=== PATIENT | male | born 1950 ===

== ENCOUNTER 2021-02-07 16:11 | Inpatient (IN) | payer MEDICARE ==
[~2021-02-07] VITALS: Ht 170 cm; Wt 69.5 kg
[2021-02-07] MEDS ORDERED: TAMS.4ER PO (17:18)
[2021-02-07] MEDS ORDERED: VENL25 PO (17:20)
[2021-02-07 18:14] LABS: Hemoglobin 12.1 g/dL (13.5-17.5); Mean Corpuscular HGB 27.9 pg (26.0-34.0); Mean Corpuscular HGB Conc 33.6 g/dL (31.5-36.5); Mean Corpuscular Volume 83 fL (80-100); Mean Platelet Volume 9.7 fL (9.1-12.4); NRBC ABSOLUTE 0.02 K/mm3 (0.00-0.02); Platelet Count 222 K/mm3 (150-400); Red Blood Cell Count 4.33 M/mm3 (4.30-5.90); White Blood Cell Count 48.79 K/mm3 (4.00-11.30)
[2021-02-07 18:32] LABS: International Normalized Ratio 1.35; Prothrombin Time Results 13.9 Sec (9.7-11.5)
[2021-02-07 18:38] LABS: Albumin, Blood 1.7 g/dL (3.4-5.0); Anion Gap 11 mmol/L (6-16); Blood Urea Nitrogen 109 mg/dL (8-24); Bun/Creatinine Ratio 17.2 (12.0-20.0); CO2, Blood 17 mmol/L (21-32); CPK Creatine Kinase 169 U/L (39-308); Chloride, Blood 105 mmol/L (98-108); Creatine Kinase MB 14.2 ng/mL (0.0-3.6); Creatine Kinase MB Index 8.4 (0.0-4.0); Creatinine, Blood 6.32 mg/dL (0.60-1.20); Ethanol (Alcohol), Blood, Med <3 mg/dL; Glomerular Filtration Rate 9 (60-); Glucose, Blood 60 mg/dL (70-99); Phosphorus, Blood 7.9 mg/dL (2.5-4.9); Potassium, Blood 5.6 mmol/L (3.5-5.5); Sodium, Blood 133 mmol/L (136-145); Troponin I <0.015 ng/mL (0.000-0.040)
[2021-02-07 18:40] LABS: Source, Urine Catheter
[2021-02-07 18:45] LABS: Appearance, Urine Clear (Clear); Bilirubin, Urine Neg (Neg); Blood, Urine 4+ (Neg); Color, Urine Yellow (P-Yellow); Glucose Qualitative, Urine Neg (Neg); Ketones, Urine Neg (Neg); Leukocyte Esterase, Urine 1+ (Neg); Nitrite, Urine Neg (Neg); Protein, Urine Neg (Neg); Urobilinogen, Urine NORM (Normal)
[2021-02-07 18:59] LABS: U Amphetamine Screen DETECTED; U Barbituate Screen Not Detected; U Benzodiazapine Screen Not Detected; U Buprenorphine Screen Not Detected; U Cannabinoids Screen Not Detected; U Cocaine Screen Not Detected; U Methadone Screen Not Detected; U Methamphetamine Screen DETECTED; U Opiates Screen Not Detected; U Oxycodone Screen Not Detected; U Phencyclidine Screen Not Detected; U Propoxyphene Screen Not Detected
[2021-02-07 19:02] LABS: BAND PERCENT MAN 11 % (0-8); BASOPHILS PERCENT MAN 0 % (0-2); EOSINOPHILS PERCENT MAN 0 % (0-6); LYMPHOCYTES ABSOLUTE MAN 0.48 K/mm3 (0.84-5.20); LYMPHOCYTES PERCENT MAN 1 % (21-46); MONOCYTES ABSOLUTE MAN 0.48 K/mm3 (0.16-1.47); MONOCYTES PERCENT MAN 1 % (4-13); NEUTROPHILS ABSOLUTE MAN 47.81 K/mm3 (1.96-9.15); SEG NEUTROPHILS PERCENT MAN 87 % (41-73); TOTAL CELLS COUNTED 100
[2021-02-07 19:06] LABS: Bacteria Rare /hpf; Squamous Epithelial Cells Not Seen /hpf (Few); White Blood Cells, Urine 0-2 /hpf (0-5)
--- NOTE | 2021-02-07 19:11 | NUR ---
Patient received as a direct admit via [employer] transportation, stretcher, and slide @ 1540. Alert and oriented x4. Able to give history. Admitted for SOB and pulm edema. Weakness in all extremities. on IV lasix, rocephin, trending BUN and creatinine. BSSR to be given to awake overnight counselor nurse.
[2021-02-07 19:34] LABS: Influenza A, PCR NEGATIVE (NEGATIVE); Influenza B, PCR NEGATIVE (NEGATIVE); Resp Syncytial Virus, PCR NEGATIVE (NEGATIVE); SARS-Cov-2 (COVID-19) PCR, MMC NEGATIVE (NEGATIVE)
--- NOTE | 2021-02-07 23:00 | NUR ---
2000 CIWA SCORE 8, ATIVAN HELD DUE TO LETHARGY.
--- NOTE | 2021-02-07 23:07 | NUR ---
24 HOUR URINE FOR PROTEIN STARTED AT 1999.
--- NOTE | 2021-02-08 02:33 | NUR ---
RN FROM [facility] CALLED TO INFORM THAT PT'S BC'S WERE POSITIVE FOR GRAM+ COCCI IN CHAINS IN AEROBIC BOTTLE. DR ANDRADE NOTIFED. SINCERE STILES
[2021-02-08 02:39] LABS: Hematocrit 36.8 % (37.0-53.0); Hemoglobin 12.6 g/dL (13.5-17.5); Mean Corpuscular HGB 28.1 pg (26.0-34.0); Mean Corpuscular HGB Conc 34.2 g/dL (31.5-36.5); Mean Corpuscular Volume 82 fL (80-100); Mean Platelet Volume 9.2 fL (9.1-12.4); NRBC ABSOLUTE 0.02 K/mm3 (0.00-0.02); Platelet Count 226 K/mm3 (150-400); RDW Standard Deviation 45.4 fL (35.1-46.3); Red Blood Cell Count 4.48 M/mm3 (4.30-5.90); White Blood Cell Count 46.43 K/mm3 (4.00-11.30)
--- NOTE | 2021-02-08 02:49 | NUR ---
SHIFT SUMMARY: PT LETHARGIC, UNABLE TO FOLLOW SIMPLE COMMANDS AND CONFUSED TO TIME AND PLACE. REQUIRES TOTAL ASSIST WITH ALL CARES. RIGHT ARM EDEMATOUS AND TENDER TO TOUCH, RED AND INFLAMED. PT HAS SCATTERED SCABS AND OPEN AREAS ALL OVER TRUNK AND EXTREMITIES. TURNED AND REPOSITION, 02 AT 2L FOR O2 SUPPORT. BICARB GTT INFUSING PER ORDER, MOST RECENT CIWA SCORE 8 BUT ATIVAN HELD DUE TO LETHARY AND SOFT BP'S. ST ON TELE IN THE ONE TEENS, 24 HOUR URINE IN PROGRESS FOR PROTEIN, DIURESING WELL AFTER IV BUMEX AND LASIX, 6L OUT THUS FAR. RENAL AND BLADDER US COMPLETED BUT NO REPORT YET IN [place]. DR WOOD IN TO ROUND ON PT AND ORDERS REC'D RECHECK CBG IN BEGINNING OD SHIFT WAS 100. PO MEDS HELD PT NOT DEEMED SAFE TO SWALLOW CURRENLTY. BED LOCKED AND LOW, BED ALARM ACTIVE, CALL GENE GRADY. SINCERE STILES
[2021-02-08 03:00] LABS: Alanine Aminotransfer (ALT/SGP 34 U/L (12-78); Albumin, Blood 1.7 g/dL (3.4-5.0); Albumin/Globulin Ratio 0.4 (0.8-1.8); Alk Phos 115 U/L (50-136); Anion Gap 9 mmol/L (6-16); Aspartate Aminotrans (AST/SGOT 44 U/L (12-37); Bilirubin, Total 0.6 mg/dL (0.1-1.0); Blood Urea Nitrogen 90 mg/dL (8-24); Bun/Creatinine Ratio 20.5 (12.0-20.0); CO2, Blood 22 mmol/L (21-32); Calcium, Blood 8.6 mg/dL (8.5-10.1); Chloride, Blood 110 mmol/L (98-108); Creatinine, Blood 4.39 mg/dL (0.60-1.20); Globulin, Blood 4.6 g/dL (2.2-4.0); Glomerular Filtration Rate 13 (60-); Glucose, Blood 108 mg/dL (70-99); Magnesium, Blood 1.6 mg/dL (1.6-2.4); Phosphorus, Blood 6.2 mg/dL (2.5-4.9); Potassium, Blood 4.4 mmol/L (3.5-5.5); Sodium, Blood 141 mmol/L (136-145); Total Protein, Blood 6.3 g/dL (6.4-8.2); Troponin I <0.015 ng/mL (0.000-0.040); Vancomycin, Random 11.9 ug/mL
[2021-02-08 03:20] LABS: BAND PERCENT MAN 16 % (0-8); BASOPHILS PERCENT MAN 0 % (0-2); EOSINOPHILS PERCENT MAN 0 % (0-6); LYMPHOCYTES ABSOLUTE MAN 0.46 K/mm3 (0.84-5.20); LYMPHOCYTES PERCENT MAN 1 % (21-46); METAMYELOCYTE ABSOLUTE MAN 0.46 K/mm3 (0.00-0.00); METAMYELOCYTE PERCENT MAN 1 % (0-0); MONOCYTES ABSOLUTE MAN 1.39 K/mm3 (0.16-1.47); MONOCYTES PERCENT MAN 3 % (4-13); SEG NEUTROPHILS PERCENT MAN 79 % (41-73); TOTAL CELLS COUNTED 100
--- NOTE | 2021-02-08 18:21 | NUR ---
SHIFT SUMMARY PT HAS SLEPT FOR MOST OF THE DAY, THERE WERE PERIODS WHERE THEY WERE DIFFICULT TO ROUSE. AT APPROXIMATELY 1700 THE PT DID SPEAK TO THIS RN FOR A FEW MINUTES AND THEY WERE ALERT AND ORIENTED TO TIME, PLACE, PERSON, AND SELF. PT HAS NOT MADE ANY STATEMENT TO PAIN OR DISCOMFORT, THOUGH THEY WILL GRIMACE AND MOAN WHEN REPOSITIONED. PT HAD AN EPISODE OF O2 DESATURATION DOWN TO 80%, THEY QUICKLY RECOVERED TO >90% WITH INTERVENTION. PT HAS HAD A WET NONPRODUCTIVE COUGH, ORAL SUCTIONING RETURNED A SMALL AMOUNT OF THICK SECRETIONS. ALL OTHER VITAL SIGNS STABLE, NO OTHER ACUTE CHANGES.
--- NOTE | 2021-02-09 03:38 | NUR ---
SHIFT SUMMARY: NO SIGNIFICANT CHANGES THIS SHIFT. PT AROUSABLE TO VERBAL STIMULI BUT REMAINS LETHARGIC. INTERMITTENTLY ABLE TO FOLLOW SIMPLE COMMANDS, DISORIENTED TO PLACE AND TIME. TOTAL ASSIST WITH ALL CARE. ORAL CAR GIVEN, NT SUCTIONED DUE TO AUDIBLE GURGLES BUT NO RETURN. PT ABLE TO WEAKLY COUGH WITH ENCOURAMENT. O2 SATS >95% VIA N/C. RIGHT ARM ELEVATED, REMAINS FROSSLY EDEMATOUS AND INFLAMED. ST ON TELE, AFEBRILE WITH OTHER VS STABLE. BED LOCKED AND LOW, CALL LUNA IN REACH, BICARB GTT PER ORDER. CORDERO FOR RETENTION DRAINING ADEQUATE AMOUNT LIGHT YELLOW URINE. SINCERE STILES
[2021-02-09 05:38] LABS: Hematocrit 38.2 % (37.0-53.0); Hemoglobin 12.8 g/dL (13.5-17.5); Mean Corpuscular HGB 27.8 pg (26.0-34.0); Mean Corpuscular HGB Conc 33.5 g/dL (31.5-36.5); Mean Corpuscular Volume 83 fL (80-100); Mean Platelet Volume 9.3 fL (9.1-12.4); NRBC ABSOLUTE 0.03 K/mm3 (0.00-0.02); NRBC Auto 0.1 /100 WBC (0.0-0.2); Platelet Count 253 K/mm3 (150-400); RDW Coefficient Variation 15.1 % (11.7-14.2); RDW Standard Deviation 45.2 fL (35.1-46.3); Red Blood Cell Count 4.61 M/mm3 (4.30-5.90); White Blood Cell Count 46.73 K/mm3 (4.00-11.30)
[2021-02-09 06:07] LABS: Anion Gap Unable to Calculate mmol/L (6-16); Bun/Creatinine Ratio Unable to Calculate (12.0-20.0); Glomerular Filtration Rate Unable to Calculate (60-)
[2021-02-09 06:09] LABS: Albumin, Blood 1.5 g/dL (3.4-5.0); Amylase, Blood 126 U/L (25-115); Anion Gap 5 mmol/L (6-16); Blood Urea Nitrogen 60 mg/dL (8-24); Bun/Creatinine Ratio 33.1 (12.0-20.0); CO2, Blood 30 mmol/L (21-32); Calcium, Blood 8.1 mg/dL (8.5-10.1); Chloride, Blood 120 mmol/L (98-108); Creatinine, Blood 1.81 mg/dL (0.60-1.20); Glomerular Filtration Rate 37 (60-); Glucose, Blood 189 mg/dL (70-99); Magnesium, Blood 1.8 mg/dL (1.6-2.4); Phosphorus, Blood 5.1 mg/dL (2.5-4.9); Potassium, Blood 3.1 mmol/L (3.5-5.5)
[2021-02-09 06:21] LABS: Sodium, Blood 155 mmol/L (136-145)
[2021-02-09 06:29] LABS: BAND PERCENT MAN 1 % (0-8); BASOPHILS PERCENT MAN 0 % (0-2); EOSINOPHILS PERCENT MAN 0 % (0-6); LYMPHOCYTES ABSOLUTE MAN 2.33 K/mm3 (0.84-5.20); LYMPHOCYTES PERCENT MAN 5 % (21-46); METAMYELOCYTE ABSOLUTE MAN 0.46 K/mm3 (0.00-0.00); METAMYELOCYTE PERCENT MAN 1 % (0-0); MONOCYTES PERCENT MAN 0 % (4-13); MYELOCYTE ABSOLUTE MAN 0.46 K/mm3 (0.00-0.00); MYELOCYTE PERCENT MAN 1 % (0-0); NEUTROPHILS ABSOLUTE MAN 43.45 K/mm3 (1.96-9.15); SEG NEUTROPHILS PERCENT MAN 92 % (41-73); TOTAL CELLS COUNTED 100
--- NOTE | 2021-02-09 06:34 | NUR ---
DR WOOD NOTIFIED OF ABNORMAL LABS, ORDERS REC'D. SINCERE STILES
[2021-02-09 09:09] LABS: Vancomycin, Trough 13.2 ug/mL (5.0-10.0)
[2021-02-09 15:46] LABS: Potassium, Blood 3.6 mmol/L (3.5-5.5)
--- NOTE | 2021-02-09 18:43 | NUR ---
SHIFT SUMMARY PT HAS BEEN SLEEPING OFF AND ON ALL DAY. WHEN AWAKE, PT IS A&O X2-3. PT WILL GRIMACE AND CRY OUT IN PAIN, BUT WHEN ASKED ABOUT PAIN WILL NOT REPLY. PT CONTINUES TO HAVE A WET SOUNDING COUGH WITH NO SPUTUM PRODUCTION. ALL VITAL SIGNS HAVE REMAINED STABLE.
[2021-02-09 18:53] LABS: Hematocrit 37.7 % (37.0-53.0); Hemoglobin 12.3 g/dL (13.5-17.5); Mean Corpuscular HGB Conc 32.6 g/dL (31.5-36.5); Mean Corpuscular Volume 86 fL (80-100); NRBC ABSOLUTE 0.03 K/mm3 (0.00-0.02); NRBC Auto 0.1 /100 WBC (0.0-0.2); Platelet Count 223 K/mm3 (150-400); RDW Coefficient Variation 15.3 % (11.7-14.2); RDW Standard Deviation 47.6 fL (35.1-46.3); Red Blood Cell Count 4.39 M/mm3 (4.30-5.90); White Blood Cell Count 44.56 K/mm3 (4.00-11.30)
[2021-02-09 20:07] LABS: BAND PERCENT MAN 1 % (0-8); BASOPHILS PERCENT MAN 0 % (0-2); EOSINOPHILS PERCENT MAN 0 % (0-6); LYMPHOCYTES ABSOLUTE MAN 4.45 K/mm3 (0.84-5.20); LYMPHOCYTES PERCENT MAN 10 % (21-46); METAMYELOCYTE ABSOLUTE MAN 0.89 K/mm3 (0.00-0.00); METAMYELOCYTE PERCENT MAN 2 % (0-0); MONOCYTES ABSOLUTE MAN 1.33 K/mm3 (0.16-1.47); MONOCYTES PERCENT MAN 3 % (4-13); MYELOCYTE ABSOLUTE MAN 0.89 K/mm3 (0.00-0.00); MYELOCYTE PERCENT MAN 2 % (0-0); NEUTROPHILS ABSOLUTE MAN 36.98 K/mm3 (1.96-9.15); SEG NEUTROPHILS PERCENT MAN 82 % (41-73); TOTAL CELLS COUNTED 100
--- NOTE | 2021-02-10 00:35 | NUR ---
PATIENT IS ALERT TO SELF ONLY, WAKES TO VERBAL STIMULI AND IS AGITATED WITH TOUCH, GRIMACING AND CALLING OUT. AUDITORY WHEEZING NOTED AND LUNGS ARE COARSE, DEEP SUCTIONING VIA YANKUER GIVEN X 2 WITH QUEING TO COUGH, PATIENT SEEMS TO HAVE DIFFICULTY CLEARING SECRETIONS ON HIS OWN, SECRETIONS ARE DAUGHERTY, THICK. PATIENT IS SCORING CIWA> [address] WOOD RECEIVED SODIUM LEVEL AT 2100 THIS EVENING AND NO NEW ORDERS AT THIS TIME, POTASSIUM REPLACEMENT WAS COMPLETED IV GTT, DEXTROSE 5% WATER IS RUNNING AT 150ML/HR, WITH IV ABX GTT RUNNING 12.5ML/HR.
--- NOTE | 2021-02-10 02:44 | NUR ---
PATIENT IS SOMNOLENT, VERBAL STIMULI DOESN'T SUSTAIN OVER 10 SECONDS EYE AWAKENING, TEMPERATURE 34.0 CELCIUS RECTAL, MARK HUGGER APPLIED AND RECTAL PROBE INSERTED MONITORING ON THE MAIN SCREEN.
[2021-02-10 04:00] LABS: Hematocrit 38.7 % (37.0-53.0); Hemoglobin 12.3 g/dL (13.5-17.5); Mean Corpuscular HGB 27.5 pg (26.0-34.0); Mean Corpuscular HGB Conc 31.8 g/dL (31.5-36.5); Mean Corpuscular Volume 86 fL (80-100); Mean Platelet Volume 9.6 fL (9.1-12.4); NRBC ABSOLUTE 0.03 K/mm3 (0.00-0.02); NRBC Auto 0.1 /100 WBC (0.0-0.2); Platelet Count 210 K/mm3 (150-400); RDW Coefficient Variation 15.5 % (11.7-14.2); RDW Standard Deviation 49.5 fL (35.1-46.3); Red Blood Cell Count 4.48 M/mm3 (4.30-5.90); White Blood Cell Count 31.98 K/mm3 (4.00-11.30)
[2021-02-10 04:27] LABS: Alanine Aminotransfer (ALT/SGP 24 U/L (12-78); Albumin, Blood 1.5 g/dL (3.4-5.0); Albumin/Globulin Ratio 0.3 (0.8-1.8); Alk Phos 103 U/L (50-136); Amylase, Blood 262 U/L (25-115); Anion Gap 3 mmol/L (6-16); Aspartate Aminotrans (AST/SGOT 28 U/L (12-37); Bilirubin, Direct 0.2 mg/dL (0.0-0.3); Bilirubin, Indirect 0.1 mg/dL (0.1-0.7); Bilirubin, Total 0.3 mg/dL (0.1-1.0); Blood Urea Nitrogen 43 mg/dL (8-24); CO2, Blood 32 mmol/L (21-32); Calcium, Blood 7.7 mg/dL (8.5-10.1); Chloride, Blood 119 mmol/L (98-108); Creatinine, Blood 1.05 mg/dL (0.60-1.20); Globulin, Blood 4.8 g/dL (2.2-4.0); Glomerular Filtration Rate >60 (60-); Glucose, Blood 311 mg/dL (70-99); Magnesium, Blood 1.9 mg/dL (1.6-2.4); Phosphorus, Blood 2.9 mg/dL (2.5-4.9); Potassium, Blood 4.1 mmol/L (3.5-5.5); Sodium, Blood 154 mmol/L (136-145); Total Protein, Blood 6.3 g/dL (6.4-8.2)
[2021-02-10 05:42] LABS: BAND PERCENT MAN 2 % (0-8); BASOPHILS PERCENT MAN 0 % (0-2); EOSINOPHILS PERCENT MAN 0 % (0-6); LYMPHOCYTES ABSOLUTE MAN 0.63 K/mm3 (0.84-5.20); LYMPHOCYTES PERCENT MAN 2 % (21-46); MONOCYTES ABSOLUTE MAN 0.63 K/mm3 (0.16-1.47); MONOCYTES PERCENT MAN 2 % (4-13); MYELOCYTE ABSOLUTE MAN 0.63 K/mm3 (0.00-0.00); MYELOCYTE PERCENT MAN 2 % (0-0); NEUTROPHILS ABSOLUTE MAN 30.06 K/mm3 (1.96-9.15); SEG NEUTROPHILS PERCENT MAN 92 % (41-73); TOTAL CELLS COUNTED 100
--- NOTE | 2021-02-10 14:26 | NUR ---
DRESSINGS CHANGED ON RUE AND BOTH BLE, RUE DRAINING PUS SWAB SENT TO LAB WITH ORDERS. DR. ADLER AWARE, D5W ORDERED TO KVO. PT REMAINED RESTLESS ATIVAN GIVEN X2, PT WAS ABLE TO RESPOND TO VERBAL STIMULI NODS AND MOVES HEAD OCCASIONALLY WHEN ASKED QUESTIONS, REMAINS ON 2L OF O2 VIA NC SATS ABOVE 98%, HRR TACHS UP TO 120-130'S, BP SYSTOLIC 130-140'S, TEMP 98.0, LUNGS COARSE ALL T/O SUCTIONED PRN. CIWA AT 14 AT THIS TIME. BED BATH COMPLETED. PT REMAINED IN BED REPOSITIONED Q2HRS, CALL LIGHTS IN REACH WILL MONITOR
--- NOTE | 2021-02-10 17:53 | NUR ---
SHIFT SUMMARY PATIENT AGITATED THROUGHOUT SHIFT; MEDICATED WITH 1-2 MG OF ATIVAN NEEDED. UNABLE TO TAKE PO MEDS OR FOODS/FLUIDS DUE TO CONTINUED ASPIRATION RISK AND INABILITY TO FOLLOW DIRECTIONS. PATIENT ABLE TO FOLLOW SIMPLE DIRECTIONS. SUCTIONING NEEDED FREQUENTLY THROUGHOUT SHIFT DUE TO INABILITY TO CLEAR SECRETIONS. COARSE LUNG SOUNDS IN ALL LOBES. YELLOW THICK SPUTUM. RT PERFORMED DUONEB TREATMENT WITH LITTLE TO NO POSITIVE RESULTS. PATIENT SATTING AT 98-100 ON 2L VIA NASAL CANULA. REPOSITIONED FREQUENTLY DUE TO MOVEMENT FROM AGITATION. CIWA ASSESSMENT OF 14. SYSTOLIC BP 130-1402, DIASTOLIC IN THE 70S. SINUS TACHYCARDIA FROM 100-130S. CANULA. BATH GIVEN AND BEDDING CHANGED. ATTENDS DRY; NO BM. CORDERO CATHETER IN PLACE DRAINING DARK YELLOW URINE. CALAZIME BARRIER CREAM APPLIED TO COCCYX/BUTTOCKS. PADDED DRESSING APPLIED TO COCCYX TO RED INTACT AREA. RECTAL TEMP PROBE IN PLACE; TEMP 97-98. DRESSINGS ON BLE AND RUE CHANGED. RUE EDEMA PRESENT WITH SEEPING OF PUS; CULTURE SENT TO LAB AND WRAPPED WITH ABD AND GUAZE.
--- NOTE | 2021-02-10 21:13 | NUR ---
PATIENT MOANING GROANING UNCONSOLABLE, RESTLESS WITHDRAWNING WITH EXTREMITIES, NONPURPOSEFUL MOVEMENTS, GRIMACING, CRYING OUT, TELE INFORMED HR GOING UP TO THE 180'S SVT NONSUSTAINING ATTEMPTED TO GET EKG IN CHART.
--- NOTE | 2021-02-10 22:45 | NUR ---
RECTAL PROBE AT 30.0 C APPLIED MARK KHOURY NOW AT 33.6
--- NOTE | 2021-02-10 22:55 | NUR ---
PATIETN IS SLOWLY WARMING WITH MARK HUGGER MORE CALM LESS RESTLESS SCORE OF CIWA 18, THRASHING, SWINGING ARMS, PULLING AT LINES MAKING PROTECTIVE AND NONPURPOSEFUL MOVEMENTS CRYING OUT, MOANING GROANING. CURRENTLY RESTING COMFORTABLY, ANY NOISE AND/OR SOUND STARTLES PATIENT AND HE STARTS THRASHING AND MOANING IN BED.
[2021-02-11 04:09] LABS: Hematocrit 35.2 % (37.0-53.0); Hemoglobin 11.1 g/dL (13.5-17.5)
[2021-02-11 04:32] LABS: Albumin, Blood 1.5 g/dL (3.4-5.0); Anion Gap 3 mmol/L (6-16); Blood Urea Nitrogen 43 mg/dL (8-24); CO2, Blood 32 mmol/L (21-32); Calcium, Blood 7.6 mg/dL (8.5-10.1); Chloride, Blood 124 mmol/L (98-108); Creatinine, Blood 1.05 mg/dL (0.60-1.20); Glomerular Filtration Rate >60 (60-); Glucose, Blood 156 mg/dL (70-99); Magnesium, Blood 1.8 mg/dL (1.6-2.4); Phosphorus, Blood 3.1 mg/dL (2.5-4.9); Potassium, Blood 3.8 mmol/L (3.5-5.5); Sodium, Blood 159 mmol/L (136-145)
--- NOTE | 2021-02-11 05:19 | NUR ---
PATIENT IS LETHARGIC CAN'T SUSTAINING EYEWAKING PAST 10 SECONDS, RESPONDS TO VERBAL AND LIGHT TOUCH STIMULI, HYPOTHERMIC 30.0 C VIA RECTAL PROBE APPLIED MARK HUGGER AT 0510 36.6 C, TURNED DOWN FAN ON MARK HUGGER KEPT IN PLACE, CIWA WERE COMPLETED THROUGOUT SHIFT REFER TO ALCOHOL WITHDRAWL CHARTING, DRESSING REMAINED DRY AND INTACT THROUGOUT NIGHT, PATIENT WAS UNCONSOLUABLE AT TIMES MOANING GROANING CRYING OUT, MULTIBLE CHANGES WITH TELEMETRY FREQUENT PVCS, PACS AND 20BEAT RUN OF VT, CONSULTED ICU REMELTER ON STRIPS AND GEODETIC ENGINEER ICU CHARGE AND MYSELF COULD SEE PARAOXYSMAL AFIB NONSUSTAINED AT TIMES WITH ETOPIC BEATS, PATIENT D5W RUNNING PER ORDER TKO, SODIUM 159 THIS AM, SPUTUM SAMPLE OBTAINED THROUGH DEEP ORAL SUCTIONIING AND CANISTER, PATIENT REQUIRED FREQUENT SUCTIONING THROUGOUT THE NIGHT, DARK THICK BROWN SECRETIONS. HYPERTENSIVE AT TIMES, RESTLESS EASILY STARTLED, NONPURPOSEFUL MOVEMENT WITH PROTECTIVE MOVEMENTS VITALS ARE STABLE AFTER CIWA PROTOCOL MEDICATION DELIVERED. WCTM.
[2021-02-11 08:36] LABS: Vancomycin, Trough 14.9 ug/mL (5.0-10.0)
--- NOTE | 2021-02-11 10:35 | NUR ---
CARE ASSUMPTION THIS RN ASSUMED CARE FROM SUMEET Sahu RN A 0700. PATIENT IS LETHARGIC. PATIENT OPENS EYES HALF WAY WITH A STERNAL RUB AND THEN SHUTS THEM AFTER 5 SECONDS. PATIENT IS NOT ABLE TO FOLLOW COMMANDS. VSS. SPO2 >90% ON 2L NC IN THE MOUTH. TELE SINUS ARRYTHMIA. PATIENT BECAME AGITATED AND RECEIVE ATIVAN PER EMAR. CIWA SCORE 9. PATIENT RIGHT CELLULITIS WOUND IS OOZING YELLOW DISCHARGE. BED IN LOWEST POSITION WILL CONTINUE TO MONITOR AND PROVIDE CARE, CALL LIGHT WITHIN REACH.
--- NOTE | 2021-02-11 12:50 | NUR ---
CRITICAL VALUE THIS RN RECEIVED A CALL FROM LAB AT 1226 WITH A CRITICAL SODIUM AT 161. THIS RN NOTIFED MANAGER UNIVERSAL AND MD WOOD.
--- NOTE | 2021-02-11 17:58 | NUR ---
SHIFT SUMMARY PATIENT IS LETHARGIC AND RESPONDS TO VERBAL/TOUCH TO THE SHOULDER THROUGH OUT THE DAY. PATIENT RESPONDS BY EYES OPENING AND THEN CLOSING. PATIENT HAS BEEN REPOSITIONED AND ORAL THROUGHOUT THE DAY. PATIENT BECOMES RESTLESS AND AGITATED AND MOVES AROUND AND WILL MOAN AND GROAN. PATIENT HAD A NASAL SUCTIONING DONE BY RESPIRATORY THERAPY, DAUGHERTY THICK SECRETIONS, AND THEN PINK TINGED SECRETIONS. HOT STRIP MILL SUPERVISOR IS ON BOARD AND TRYING TO GET IN TOUCH WITH THE [facility], SINCE FIDNING A NOTE STATING THE PATIENT IS A HOMELESS VET. VSS. SPO2 >90% ON RA. CALL LIGHT WITHIN REACH. WILL CONTINUE TO MONITOR AND PROVIDE CARE UNTIL HAND OFF WITH NEXT SHIFT.
--- NOTE | 2021-02-11 22:42 | NUR ---
DR. WOOD CALLED AT 2241 RESULT OF NA+ 157 GIVEN NO FURTHER ORDERS AT THIS TIME, EARLIER THIS EVENING PATIENT EXHIBIT SIGNS OF EXTREME PAIN, CRYING OUT, HOLD STOMACH PROTECT LEG MOVEMENTS AND GRIMACING CALLED DR. CAIN AND RECEIVED NEW ORDER OF FENTANYL 25MCG IVP Q2 NEEDED, PATIENT RECEIVED MEDICATION WITHIN 40 MINUTES IS RESTING COMFORTABLY AND MORE RELAXED, ABLE TO BE AROUSABLE WITH LIGHT TOUCH AND VOICE.
--- NOTE | 2021-02-12 02:05 | NUR ---
PATIENT WAS ABLE TO COMPLETE CTA SCAN, AWAITING RESULTS
[2021-02-12 04:58] LABS: BASOPHILS ABSOLUTE AUTO 0.06 K/mm3 (0.00-0.23); BASOPHILS PERCENT AUTO 0 % (0-2); EOSINOPHILS ABSOLUTE AUTO 0.05 K/mm3 (0.00-0.68); EOSINOPHILS PERCENT AUTO 0 % (0-6); Hematocrit 34.9 % (37.0-53.0); IMMATURE GRAN ABSOLUTE AUTO 0.73 K/mm3 (0.00-0.10); IMMATURE GRAN PERCENT AUTO 4 % (0-1); LYMPHOCYTES ABSOLUTE AUTO 2.72 K/mm3 (0.84-5.20); LYMPHOCYTES PERCENT AUTO 14 % (21-46); MONOCYTES ABSOLUTE AUTO 0.65 K/mm3 (0.16-1.47); MONOCYTES PERCENT AUTO 3 % (4-13); Mean Corpuscular HGB 27.4 pg (26.0-34.0); Mean Corpuscular HGB Conc 31.5 g/dL (31.5-36.5); Mean Corpuscular Volume 87 fL (80-100); NEUTROPHILS ABSOLUTE AUTO 15.39 K/mm3 (1.96-9.15); NEUTROPHILS PERCENT AUTO 79 % (41-73); Platelet Count 125 K/mm3 (150-400); RDW Coefficient Variation 15.8 % (11.7-14.2); RDW Standard Deviation 50.4 fL (35.1-46.3); Red Blood Cell Count 4.01 M/mm3 (4.30-5.90)
--- NOTE | 2021-02-12 06:08 | NUR ---
PATIENT IS RESTING COMFORTABLY IN BED, Q4 ORAL CARE GIVEN WITH NASO-SUCTIONING, PATIENT IS LOOKING MORE COMFORTABLE WITH PAIN CONTROL ON BOARD, NO MOANING, GROANING, GRIMACING, PROTECT BODY MOVEMENT AND CRYING OUT. VITALS STABLE TONIGHT, PATIENT NOT REQUIRING OXYGEN NO APNEA NOTED SATURATIONS > 90% ON RA, LESS AUDITORY WHEEZING NOTED.CIWA RANGING FROM 8-20 PLEASE REFER TO CHARTING. WILL CONTINUE TO MONITOR.
[2021-02-12 06:22] LABS: Albumin, Blood 1.3 g/dL (3.4-5.0); Anion Gap 4 mmol/L (6-16); Blood Urea Nitrogen 29 mg/dL (8-24); Bun/Creatinine Ratio 27.4 (12.0-20.0); CO2, Blood 29 mmol/L (21-32); Chloride, Blood 122 mmol/L (98-108); Creatinine, Blood 1.06 mg/dL (0.60-1.20); Glomerular Filtration Rate >60 (60-); Glucose, Blood 126 mg/dL (70-99); Magnesium, Blood 1.3 mg/dL (1.6-2.4); Potassium, Blood 3.3 mmol/L (3.5-5.5); Sodium, Blood 155 mmol/L (136-145)
--- NOTE | 2021-02-12 09:33 | NUR ---
INTO SDS ADMISSION STARTED VSS. DOES NOT FOLLOW ANY COMANDS OR OPEN EYES. PATIENT IS MOANING AND GROANING HAS A NASAL TRUMPET IN PLACE
--- NOTE | 2021-02-12 09:34 | NUR ---
CORDERO CATHETER IN PLACE MULTIPLE DRESSING.
--- NOTE | 2021-02-12 10:12 | NUR ---
02/12/21 1012 MEHNAZ,PEARL PT ON SCHEDUOLED ANTIBIOTICS PER DR PRESCOTT ORDERS.
--- NOTE | 2021-02-12 10:20 | NUR ---
ARRIVED FROM ENDO ROOM 1 RECIEVED REPORT VSS
--- NOTE | 2021-02-12 10:37 | NUR ---
Discharge instructions reviewed with patient. Patient verbalizes understanding. Copy given to patient to take home. Patient States Post-Procedure ride home has been arranged. Discharged via wheelchair to private car for ride home.
--- NOTE | 2021-02-12 17:55 | NUR ---
SHIFT SUMMARY PT HAS BEEN RESTING/LETHARGIC THROUGHOUT THE DAY. PT DOES NOT RESPOND TO INTERACTION FROM STAFF. AT ONE INCIDENT, PT OPENED EYES DURING CARE AND ATTEMPTED TO ROLL SELF, BY THE END OF CARE PT WAS NO LONGER RESPONDING TO COMMANDS. PT WILL GROAN AND GRIMACE DURING REPOSITIONING BUT WILL NOT RESPOND WHEN ASKED IF THEY ARE IN PAIN. PAIN MANAGEMENT MEDICATION HAS BEEN ADMINISTERED PER EMAR. PT WAS TRANSPORTED TO OR FOR I&D OF THE [facility] AND RETURNED WITH A DRESSING IN PLACE, DRESSING IS CURRENTLY C/D/I. VITAL SIGNS HAVE BEEN STABLE, NO ACUTE CHANGES TO CONDITION.
[2021-02-13 06:35] LABS: Albumin, Blood 1.3 g/dL (3.4-5.0); Anion Gap 6 mmol/L (6-16); Blood Urea Nitrogen 19 mg/dL (8-24); Bun/Creatinine Ratio 19.1 (12.0-20.0); CO2, Blood 24 mmol/L (21-32); Calcium, Blood 6.6 mg/dL (8.5-10.1); Chloride, Blood 115 mmol/L (98-108); Creatinine, Blood 0.99 mg/dL (0.60-1.20); Glomerular Filtration Rate >60 (60-); Glucose, Blood 106 mg/dL (70-99); Magnesium, Blood 1.5 mg/dL (1.6-2.4); Phosphorus, Blood 2.5 mg/dL (2.5-4.9); Potassium, Blood 3.4 mmol/L (3.5-5.5); Sodium, Blood 145 mmol/L (136-145)
[2021-02-13 06:46] LABS: BASOPHILS ABSOLUTE AUTO 0.07 K/mm3 (0.00-0.23); BASOPHILS PERCENT AUTO 0 % (0-2); EOSINOPHILS ABSOLUTE AUTO 0.34 K/mm3 (0.00-0.68); EOSINOPHILS PERCENT AUTO 2 % (0-6); Hematocrit 36.1 % (37.0-53.0); Hemoglobin 11.4 g/dL (13.5-17.5); IMMATURE GRAN ABSOLUTE AUTO 0.81 K/mm3 (0.00-0.10); IMMATURE GRAN PERCENT AUTO 4 % (0-1); LYMPHOCYTES ABSOLUTE AUTO 2.87 K/mm3 (0.84-5.20); LYMPHOCYTES PERCENT AUTO 13 % (21-46); MONOCYTES PERCENT AUTO 3 % (4-13); Mean Corpuscular HGB 27.6 pg (26.0-34.0); Mean Corpuscular HGB Conc 31.6 g/dL (31.5-36.5); Mean Corpuscular Volume 87 fL (80-100); Mean Platelet Volume 10.5 fL (9.1-12.4); NEUTROPHILS PERCENT AUTO 80 % (41-73); Platelet Count 120 K/mm3 (150-400); RDW Coefficient Variation 15.9 % (11.7-14.2); RDW Standard Deviation 50.7 fL (35.1-46.3); Red Blood Cell Count 4.13 M/mm3 (4.30-5.90); White Blood Cell Count 22.99 K/mm3 (4.00-11.30)
--- NOTE | 2021-02-13 13:15 | NUR ---
STRINGED INSTRUMENT TUNER NOTIFIED THIS RN OF A SUSTAINED INCREASE IN HEART RATE, SINUS TACH 130-160. UPON ASSESSMENT, THE PT APPEARED TO BE IN AN INCREASED STATE OF PAIN, ALL OTHER VITAL SIGNS REMAINED UNCHANGED. PRN PAIN MANAGEMENT WAS GIVEN AND THERE WAS NO CHANGE IN CONDITION. PROVIDER WAS NOTIFIED AND ORDERS WERE GIVEN, INPUT, AND ENACTED. PRN LOPRESSOR SUCCESSFULLY REDUCED HEART RATE TO SINUS RHYTHM AT 80-90. PT APPEARS TO BE MORE COMFORTABLE AND RELAXED AT THIS TIME.
[2021-02-13 13:33] LABS: Magnesium, Blood 1.7 mg/dL (1.6-2.4); Phosphorus, Blood 2.8 mg/dL (2.5-4.9); Potassium, Blood 3.8 mmol/L (3.5-5.5)
--- NOTE | 2021-02-13 16:54 | NUR ---
SHIFT SUMMARY PT HAS BEEN RESTING IN BED FOR THE DURATION OF THE DAY. PT HAS MINIMALLY RESPONDED TO VERBAL STIMULI AND LIGHT TOUCH BY OPENING THEIR EYES FOR A BRIEF PERIOD. PT HAS CONTINUED TO MOAN AND GRIMACE WHEN REPOSITIONED BUT WILL NOT VERBALIZE ANY PAIN. PT DOES NOT FOLLOW COMMANDS. PT HAS REPOSITIONED SELF FREQUENTLY THROUGHOUT THE SHIFT. HEART RATE IS CURRENTLY STABLE AT 100, SINUS RHYTHM. ALL OTHER VITAL SIGNS STABLE.
--- NOTE | 2021-02-13 17:05 | NUR ---
WOUND CARE WOULD CARE DONE PER ORDERS. SMALL DRAINAGE NOTED ON OLD BANDAGE. NEW ABD PAD WRAPPED WITH KERLEX. VEL DRAIN IN PLACE. PT TOLERATED WELL.
--- NOTE | 2021-02-13 20:40 | NUR ---
CONTACTED DR. WOOD AFTER PT CBG WAS 69. ORDER RECEIVED FOR 5WNS AT 50ML/HR. WILL CONTINUE TO MONITOR AND ADDRESS NEEDS THEY ARISE.
--- NOTE | 2021-02-13 22:10 | NUR ---
CBG 90, D5WNS STARTED AT 50ML/HR PER DR. WOOD'S ORDER. MEDICATED FOR PAIN OF 6/10 PER FACES SCALE. PT ABLE TO ANSWER SIMPLE QUESTIONS AND ASKS QUESTIONS NEEDED. NURSING ENTERED ROOM HE MURMUR/ASKES, "WHAT JANAY GOT?", REFERING TO THE MEDS AND IV FLUIDS BROUGHT INTO THE ROOM. STATES, "YES" WHEN ASKED IF HE IS IN PAIN, BUT UNABLE TO INDICATE PAIN LEVEL OR WHERE PAIN LOCATED. FACES SCALE USED TO DETERMINE PAIN LEVEL. ABLE TO REPOSITION SELF IN BED. NODS HIS HEAD WHEN ASKED IF HE WAS COMFORTABLE IN SEMI FOWLERS. COVERED WITH SHEET WHEN HE SAID, "HOT" AFTER NURSING ASKED IF HE WANTED A BLANKET OVER HIM BUT NODDED HIS HEAD WHEN ASKED IF SHEET WAS OK. SAFETY MEASURES IN PLACE. WILL CONTINUE TO MONITOR AND ADDRESS NEEDS THEY ARISE.
--- NOTE | 2021-02-14 02:18 | NUR ---
HAS CONTINUED TO MAINTAIN CGB'S IN THE 90'S SINCE DEX RESTARTED. WILL CONTINUE TO MONITOR CBG'S Q2HRS UNTIL SHIFT CHANGE.
--- NOTE | 2021-02-14 04:16 | NUR ---
CONTINUES TO MAINTAIN CBG'S IN THE . WILL CONTINUE TO MONITOR AND ADDRESS NEEDS THEY ARISE.
--- NOTE | 2021-02-14 06:23 | NUR ---
LYING IN SUPINE POSITION WITH EYES CLOSED. WAKES EASILY TO TOUCH. HAS BECOME MUCH MORE VOCAL THROUGHOUT SHIFT. HAS TTEMPTED TO REFUSE CBG'S SINCE 4 AM, BECOMING IRRITABLE WHEN NURSING ATTEMPT TO COMPLETE FINGER STICK BUT WILL BECOME MORE COOPERTATIVE WITH NEEDS WITH NURSING. HE STATES, "IM TIRED OF THAT, I DON'T WANT TO BE POKED!" CONTINUES TO REPOSITION SELF IN BED. DENIES FURTHER NEEDS OR WANTS AT THIS TIME. SAFETY MEAURES IN PLACE. WILL CONTINUE TO MONITOR AND GIVE HAND OFF TO ONCOMING SHIFT USING SBAR DURING BEDSIDE REPORT.
[2021-02-14 08:33] LABS: BASOPHILS ABSOLUTE AUTO 0.03 K/mm3 (0.00-0.23); BASOPHILS PERCENT AUTO 0 % (0-2); EOSINOPHILS ABSOLUTE AUTO 0.36 K/mm3 (0.00-0.68); EOSINOPHILS PERCENT AUTO 2 % (0-6); Hemoglobin 11.2 g/dL (13.5-17.5); IMMATURE GRAN ABSOLUTE AUTO 0.67 K/mm3 (0.00-0.10); IMMATURE GRAN PERCENT AUTO 3 % (0-1); LYMPHOCYTES ABSOLUTE AUTO 2.77 K/mm3 (0.84-5.20); LYMPHOCYTES PERCENT AUTO 13 % (21-46); MONOCYTES PERCENT AUTO 4 % (4-13); Mean Corpuscular HGB 27.5 pg (26.0-34.0); Mean Corpuscular HGB Conc 31.1 g/dL (31.5-36.5); Mean Corpuscular Volume 89 fL (80-100); Mean Platelet Volume 10.6 fL (9.1-12.4); NEUTROPHILS ABSOLUTE AUTO 16.16 K/mm3 (1.96-9.15); NEUTROPHILS PERCENT AUTO 78 % (41-73); Platelet Count 123 K/mm3 (150-400); RDW Coefficient Variation 15.7 % (11.7-14.2); RDW Standard Deviation 51.2 fL (35.1-46.3); Red Blood Cell Count 4.07 M/mm3 (4.30-5.90); White Blood Cell Count 20.79 K/mm3 (4.00-11.30)
[2021-02-14 08:55] LABS: Albumin, Blood 1.2 g/dL (3.4-5.0); Anion Gap 3 mmol/L (6-16); Blood Urea Nitrogen 25 mg/dL (8-24); Bun/Creatinine Ratio 24.8 (12.0-20.0); CO2, Blood 26 mmol/L (21-32); Calcium, Blood 7.6 mg/dL (8.5-10.1); Chloride, Blood 114 mmol/L (98-108); Creatinine, Blood 1.01 mg/dL (0.60-1.20); Glomerular Filtration Rate >60 (60-); Glucose, Blood 107 mg/dL (70-99); Magnesium, Blood 1.8 mg/dL (1.6-2.4); Phosphorus, Blood 3.1 mg/dL (2.5-4.9); Potassium, Blood 4.1 mmol/L (3.5-5.5); Sodium, Blood 143 mmol/L (136-145); Triglycerides 112 mg/dL (30-160); Vancomycin, Trough 10.4 ug/mL (5.0-10.0)
--- NOTE | 2021-02-14 10:14 | NUR ---
PATIENT ALERT TO SELF. PUPILS PERRLA. ANSWERING YES AND NO QUESTIONS. OVERALL VERY WEAK. MOANING OUT AT TIMES. BILATERAL COW RIDER STRENGTH AND ABLE TO MOVE SELF IN BED. BED ALARM ON. ON ROOM AIR SATING MID 90'S. LUNGS SOUNDING COARSE WITH EXPIRATORY WHEEZE. WEAK CONGESTED COUGH. REPISRATORY CARE IN FOR TREATEMENTS. TELE SHOWING SINUS RHYTHM - SINUS TACH. HR 90-110'S. DENIES CHEST PAIN/PRESSURE. VITAL SIGNS STABLE. DENIES ABDOMINAL PAIN. ATTENDS IN PLACE. CORDERO CATH DRAINING CLEAR YELLOW URINE TO GRAVITY. SKIN OVERALL BROWN DISCOLORATION, SCATTERED SCABS AND BRUISING. BLE CELLULITITS WITH SCABING. DRESSINGS CHANGED THIS AM. ISABELLE CELLULITIS AND WOUND FROM I/D ON 02/12 DRAINING PURULENT DRAINAGE, UPON SHIFT START DRESSING SATURATED, WOUND CLEANSED AND DRESSING CHANGED. LEFT ARMPIT YEASTY, NYSTATIN CREAM APPLIED. CLINIMIX AND D5 NS INFUSING INTO JESSICA POWER GLIDE. ANTIBIOTICS INFUSING THIS AM WELL. CALL LIGHT IN REACH. WILL CONTINUE TO MONITOR.
--- NOTE | 2021-02-14 15:05 | NUR ---
PATIENT CONVERTED TO AFIB AROUND 1300. SLEEPING ON AND OFF IN BED. DENIES PALPITATIONS. HR SUSTAINING 130'S. CALL PLACED TO DR. ADLER, ORDERS TO PUSH IV METOPTOLOL. BP STABLE AT THIS TIME. WILL CONTINUE TO MONITOR.
--- NOTE | 2021-02-14 15:26 | NUR ---
PATIENT CONVERTED TO SINUS RHYTHM AT 1533 AND HR MAINTAINING 80'S AT THIS TIME. VITAL SIGNS STABLE.
--- NOTE | 2021-02-14 19:21 | NUR ---
SHIFT SUMMARY: NEURO REMAINS UNCHANGED. PATIENT ABLE TO COMMUNICATE WITH SHORT SENTENCES. STILL CONFUSED AND ORIENTED TO SELF. NOT ORIENTED TO PLACE OR SITUATION. ABLE TO FOLLOW SIMPLE COMMANDS. AT TIMES TRYING TO GET OUT OF BED. BED ALARM ON. REMAINS ON ROOM AIR. SEE PREVIOUS NOTES FOR TELE CHANGES. PATIENT NO IN SINUS RHYTHM WITH HR 80-90'S. DENIES PAIN. PATIENT DID PULL TUBING FROM POWERGLIDE, CHARGE NURSE IN TO ASSIST WITH DRESSING CHANGED AND CLEAN UP. CLINIMIX AND D5 NS INFUSING. CLINIMIX RATE INCREASED TO 100 ML/HR. LIPIDS TO INFUSE TOMORROW AM. PLAN FOR SPEECH TO SEE PATIENT TOMORROW TO FOLLOW UP. ORDERS FOR POSSIBLE NG TUBE TOMORROW BASED ON PATIENT STATUS. PATIENT REPEATED PHONE NUMBER TO ME STATING IT WAS HIS PHONE NUMBER, NUMBER WRITTEN ON BOARD. CALL LIGHT REMAINED IN REACH. BED LOW AND LOCKED POSITION. CHANGING AND CLEANING DRESSINGS NEEDED.
--- NOTE | 2021-02-14 20:34 | NUR ---
AASUMED CARE PT IS ALERT. VITALS ARE STABLE AND IS ON ROOM AIR. PT IS RESTLESS AND PULLING IN LINES AND TUBES, TRYING TO SIT UP. PT HAS ASKED SEVERAL TIME WHERE HE IS AND DOES NOT KNOW HE IS IN A HOSPITAL. CALLL LIGHT IS WITHIN REACH. WILL CONTINUE TO MONITOR.
--- NOTE | 2021-02-15 05:51 | NUR ---
SHIFT SUMMARY PT HAS BEEN RESTLESS T/O TH NIGHT. HAS PULLED ON CORDS AND TUBES AND TANGLED HIMSELF IN THEM. PT'S VITALS HAVE BEEN STABLE AND IS ON ROOM AIR WITH SATS ABOVE 92%. PT YELLS OUT "OUCH" BUT DENIES PAIN. PT IS ABLE TO ANSWER SOME YES AND NO QUESTIONS AND IS ABLE TO FOLLOW SOME COMMANDS. WOUND CARE WAS DONE ON RIGHT FOREARM THIS AM. PT HAS RASHES ON CHEST ARM AND REDNESS/RASH IN GROIN AREA. CALL LIGHT IS WITH REACH. BED ALARM IS ACTIVATED.
[2021-02-15 06:23] LABS: BASOPHILS ABSOLUTE AUTO 0.03 K/mm3 (0.00-0.23); BASOPHILS PERCENT AUTO 0 % (0-2); EOSINOPHILS ABSOLUTE AUTO 0.25 K/mm3 (0.00-0.68); EOSINOPHILS PERCENT AUTO 2 % (0-6); Hematocrit 34.6 % (37.0-53.0); Hemoglobin 10.8 g/dL (13.5-17.5); IMMATURE GRAN ABSOLUTE AUTO 0.24 K/mm3 (0.00-0.10); IMMATURE GRAN PERCENT AUTO 1 % (0-1); LYMPHOCYTES ABSOLUTE AUTO 2.39 K/mm3 (0.84-5.20); LYMPHOCYTES PERCENT AUTO 14 % (21-46); MONOCYTES ABSOLUTE AUTO 0.88 K/mm3 (0.16-1.47); MONOCYTES PERCENT AUTO 5 % (4-13); Mean Corpuscular HGB 28.1 pg (26.0-34.0); Mean Corpuscular HGB Conc 31.2 g/dL (31.5-36.5); Mean Corpuscular Volume 90 fL (80-100); Mean Platelet Volume 10.8 fL (9.1-12.4); NEUTROPHILS ABSOLUTE AUTO 13.08 K/mm3 (1.96-9.15); NEUTROPHILS PERCENT AUTO 78 % (41-73); Platelet Count 149 K/mm3 (150-400); RDW Coefficient Variation 15.6 % (11.7-14.2); RDW Standard Deviation 51.3 fL (35.1-46.3); Red Blood Cell Count 3.85 M/mm3 (4.30-5.90); White Blood Cell Count 16.87 K/mm3 (4.00-11.30)
[2021-02-15 06:52] LABS: Albumin, Blood 1.1 g/dL (3.4-5.0); Anion Gap 4 mmol/L (6-16); Blood Urea Nitrogen 25 mg/dL (8-24); Bun/Creatinine Ratio 26.9 (12.0-20.0); CO2, Blood 25 mmol/L (21-32); Calcium, Blood 7.7 mg/dL (8.5-10.1); Chloride, Blood 118 mmol/L (98-108); Creatinine, Blood 0.93 mg/dL (0.60-1.20); Glomerular Filtration Rate >60 (60-); Glucose, Blood 111 mg/dL (70-99); Magnesium, Blood 1.8 mg/dL (1.6-2.4); Phosphorus, Blood 3.1 mg/dL (2.5-4.9); Potassium, Blood 4.1 mmol/L (3.5-5.5); Sodium, Blood 147 mmol/L (136-145)
--- NOTE | 2021-02-15 10:34 | NUR ---
PATIENT ALERT TO SELF. ABLE TO MOVE ALL EXTREMITIES. DENIES NUMBNESS/TINGLING. MOANS AT TIMES. ABLE TO MAKE OUT SHORT SENTENCES. AT TIMES VERY DIFFICULT TO UNDERSTAND. IS NOT AWARE OF SITUATION OR PLACE. UNABLE TO GET PATIENT TO STATE IF HE HAS ANY FAMILY OTR FRIENDS WE COULD CONTACT. PATIENT DOES HAVE CELLPHONE IN ROOM. ON ROOM AIR SATING MID 90'S. LUNGS SOUND COARSE AND EXPIRATORY WHEEZE. BREATHING TREATMENTS PER RESPIRATORY. COARSE COUGH. SUCTIONING PRN AND ORAL CARE. REMAINS NPO. TELE SHOWING SINUS WITH PVC'S AND HR 90'S. DENIES CHEST PAIN/PRESSURE. VITAL SIGNS STABLE. ISABELLE ARM WOUND WITH OINROSE DRAIN, CLEANED AND REDRESSED. BLE CELLULITITS CLEANED AND REDRESSED. ANTIBIOTICS INFUSED THIS AM. D5W RUNNING WELL CLINIMIX AND LIPIDS. CALL LIGHT IN REACH. SPEECH IN TO SEE PATIENT. CBG MOVED TO Q6. CIWA Q4. WILL CONTINUE TO MONITOR.
--- NOTE | 2021-02-15 18:34 | NUR ---
SHIFT SUMMARY: PATIENT REMAINS ONLY ALERT TO SELF. SLEEPING MOST OF THE SHIFT. MOANING AT TIMES AND SAYING " I GOT TO GET UP". NEURO REMAINS UNCHANGED. SEE PREVIOUS NOTE. TELE SHOWING SINUS RHYTHM TO SINUS TACH WITH HR 90-110'S. DENIES PAIN WHEN ASKED. DRESSING CHANGED THIS AM AND SITES REMAIN CLEAN. PATIENT REMAINS NPO. SPEECH IN THIS AM. ORAL CARE AND CIWA DONE Q4. ON ROOM AIR. NO BOWEL MOVEMENT THIS SHIFT. CORDERO CATH IN PLACE DRAINING URINE TO GRAVITY. CATH CARE DONE THIS SHIFT. CLINIMIX, LIPIDS, AND D5W INFUSING. CALL LIGHT IN REACH. WILL REPORT OFF TO ONCOMING RN.
--- NOTE | 2021-02-16 06:07 | NUR ---
SHIFT SUMMARY PT HAS BEEN MORE AWAKE THAN PRIOR NIGHTS. HE HAS BEEN ABLE TO COMMUNICATE USING MORE WORKS. WAS EMOTIONAL AND CRYING SEVERAL TIMES. PT HAS HAD NO ACUTE CHANGES AND VITALS ARE STABLE. PT HAS BEEN PULLING AT CATHETER, CORDS AND OTHER TUBES; HE HAS TANGLED HIMSELF SEVERAL TIMES IN BED. PT MANAGED TO GET LEGS OVER SIDERAIL YELLING "I WAN TO GET UP," BUT AT NO POINT COMBATIVE AND WAS REORIENTED TO PLACE. CALL LIGHT IS WITHIN REACH BUT DOES NOT USE IT HE YELLS OUT. BED ALARM IS ACTIVATED.
[2021-02-16 08:54] LABS: Albumin, Blood 1.1 g/dL (3.4-5.0); Anion Gap 4 mmol/L (6-16); Blood Urea Nitrogen 24 mg/dL (8-24); Bun/Creatinine Ratio 29.9 (12.0-20.0); CO2, Blood 25 mmol/L (21-32); Calcium, Blood 7.9 mg/dL (8.5-10.1); Chloride, Blood 113 mmol/L (98-108); Glomerular Filtration Rate >60 (60-); Glucose, Blood 118 mg/dL (70-99); Magnesium, Blood 1.5 mg/dL (1.6-2.4); Phosphorus, Blood 2.9 mg/dL (2.5-4.9); Potassium, Blood 4.4 mmol/L (3.5-5.5); Sodium, Blood 142 mmol/L (136-145); Vancomycin, Trough 10.5 ug/mL (5.0-10.0)
[2021-02-16 08:55] LABS: Hematocrit 35.2 % (37.0-53.0); Mean Corpuscular HGB Conc 31.3 g/dL (31.5-36.5); Mean Corpuscular Volume 90 fL (80-100); Platelet Count 183 K/mm3 (150-400); RDW Coefficient Variation 15.4 % (11.7-14.2); Red Blood Cell Count 3.93 M/mm3 (4.30-5.90); White Blood Cell Count 18.04 K/mm3 (4.00-11.30)
--- NOTE | 2021-02-16 17:54 | NUR ---
SHIFT SUMMARY; ASSUMED CARE AT 0700, WAKES TO VERBAL STIMULI. INTERMITANTLY ALERT DURING DAY. SLOW TO RESPOND BUT ANSWERS QUESTIONS APPROPRIATLY. DRESSING TO RIGHT ARM CLEAN/D/INTACT. BILATERAL LOWER LEG DRESSING CLEAN/DRY/INTACT. CORDERO CATH IN PLACE DRAINING TO GRAVITY. Q2 REPOSITIONING THROUGHOUT DAY WITH ORAL CARE Q4. REPOSITIONS SELF IN BED AT TIMES. CLINIMIX, D5 AND LIPIDS INFUSING TO LEFT UPPER POWER GLIDE. STATUS CHANGED TO MEDICAL TODAY. ICE CHIPS ONLY DUE TO UNABLE TO STAY AWAKE LONGER THAN 15MINS PER BEDSIDE SWALLOW. ST TO REEVALUATE TOMARROW TO ADVANCE ORAL INTAKE TOLERATED. VSS, WILL CONTINUE TO MONITOR AND TREAT UNTIL CHANGE OF SHIFT.
[2021-02-17 04:29] LABS: Hematocrit 33.4 % (37.0-53.0); Hemoglobin 10.4 g/dL (13.5-17.5); Mean Corpuscular HGB 27.7 pg (26.0-34.0); Mean Corpuscular HGB Conc 31.1 g/dL (31.5-36.5); Mean Corpuscular Volume 89 fL (80-100); Platelet Count 205 K/mm3 (150-400); RDW Coefficient Variation 15.4 % (11.7-14.2); RDW Standard Deviation 49.2 fL (35.1-46.3); Red Blood Cell Count 3.75 M/mm3 (4.30-5.90); White Blood Cell Count 18.07 K/mm3 (4.00-11.30)
[2021-02-17 04:51] LABS: Anion Gap 3 mmol/L (6-16); Blood Urea Nitrogen 27 mg/dL (8-24); Bun/Creatinine Ratio 30.2 (12.0-20.0); CO2, Blood 26 mmol/L (21-32); Calcium, Blood 7.9 mg/dL (8.5-10.1); Chloride, Blood 109 mmol/L (98-108); Creatinine, Blood 0.89 mg/dL (0.60-1.20); Glomerular Filtration Rate >60 (60-); Glucose, Blood 111 mg/dL (70-99); Magnesium, Blood 1.7 mg/dL (1.6-2.4); Phosphorus, Blood 3.2 mg/dL (2.5-4.9); Potassium, Blood 4.6 mmol/L (3.5-5.5); Sodium, Blood 138 mmol/L (136-145)
--- NOTE | 2021-02-17 06:06 | NUR ---
A/OX1. VSS. CONTACT PRECAUTIONS D/T MRSA. PT RUNNING IV FLUIDS & CLINIMIX. CORDERO IN PLACE. ATENS IN PLACE. NPO EXCEPT ICE CHIPS PER ST. PT INTERACTIVE W/ RN, BUT STILL CONFUSED. BED ALARM ON. ORAL CARE Q4H PERFORMED. PT GIVEN ICE CHIPS THROUGHOUT SHIFT. C/O HE IS HUNGRY. Q2H TURN. NO ISSUES OVERNIGHT.
--- NOTE | 2021-02-17 13:12 | NUR ---
UPDATE: PT'S VEL DRAIN REMOVED PER DR PRESCOTT. DRAIN REMOVED WNL, REMOVED BY SINCERE FLORES.
--- NOTE | 2021-02-17 17:52 | NUR ---
SHIFT SUMMARY: PT CONTINUES ALERT, ORIENTED TO SELF, LOCATION AND SITUATION T/OUT DAY W/ PERIODS OF NAPPING. BED ALARM CONTINUES IN PLACE FOR SAFETY, PT ATTEMPTS TO EXIT BED INSTEAD OF PRESSING CALL BUTTON DESPITE CONTINUED REMINDERS. PT CONTINUES ON ROOM AIR, NO TELEMETRY, CONTACT ISOLATION FOR MRSA IN SPUTUM AND WOUNDS. SPEECH EVAL COMPLETED THIS AM, PT PROGRESSED TO MECH SOFT DIET, SWALLOWS PILLS IN APPLESAUCE. INDWELLING CORDERO CONTINUES PATENT. PT INCONTINENT OF STOOL, ATTENS CHANGED NEEDED. BEDBATH COMPLETED TODAY. PT REPOSITIONING SELF OFTEN. D5 INFUSING W/OUT DIFFICULTY. PT RECEIVES NEW BED ASSIGNMENT, REPORT TO [facility].
[2021-02-18 05:54] LABS: Hematocrit 29.5 % (37.0-53.0); Hemoglobin 9.3 g/dL (13.5-17.5)
[2021-02-18 06:15] LABS: Albumin, Blood 0.9 g/dL (3.4-5.0); Anion Gap 4 mmol/L (6-16); Blood Urea Nitrogen 36 mg/dL (8-24); Bun/Creatinine Ratio 31.3 (12.0-20.0); CO2, Blood 26 mmol/L (21-32); Calcium, Blood 7.8 mg/dL (8.5-10.1); Chloride, Blood 107 mmol/L (98-108); Creatinine, Blood 1.15 mg/dL (0.60-1.20); Glomerular Filtration Rate >60 (60-); Glucose, Blood 129 mg/dL (70-99); Magnesium, Blood 1.7 mg/dL (1.6-2.4); Phosphorus, Blood 4.6 mg/dL (2.5-4.9); Potassium, Blood 4.3 mmol/L (3.5-5.5); Sodium, Blood 137 mmol/L (136-145)
--- NOTE | 2021-02-18 06:16 | NUR ---
71 year old [facility] disabled with current homelessness & substance abuse has recieved [facility] services at [place] in the past. Positive for Meth & amphetimines on admit for sepsis ARF. PT as PCU transfer yesterday evening & he calls nurse multiple times to room at least 40 calls. PT is confused high fall risk & he picks at skin. He has multiple dried scattered scabs present on bilat le. He has rt UE I & D site with janette drain removal yesterday. . RT arm dressing covered with stockinette to prevent picking. He was given vistaril 25 mg twice for S/sx of WD. PT says he has only drank 1 time in 7 years but that he has DTR Roxann Haynes in [place] who is homeless that he has been trying to help? Has IV Fluid infusing at 50 ml hrvia powerglide which does not draw. Fall aspiration & etoh WD precautions. Needs dc planning for safe discharge.
--- NOTE | 2021-02-18 16:44 | NUR ---
SHIFT SUMMARY PT AWAKE AT START OF SHIFT, ATTEMPTING TO GET OOB. PT PICKING AT EVERYTHING IN SITE. PT'S IV SITE TO JESSICA COVERED WITH COBAN AND NETTING, BUT PT MANAGED TO REMOVE AND PULL IV OUT IMMEDIATELY AFTER REPORT. DR PATINO NOTIFIED; NEW ORDERS RECEIVED. PT ALSO C/O "HEART BURN". DR PATINO NOTIFIED AGAIN; NEW ORDERS PLACED. PT CONTINUED TO BE AGITATED AND FREQUENTLY TRYING TO GET OOB. PT CONFUSED AND DISORIENTED TO WHERE HE IS AT AND WHY. ATIVAN GIVEN PER EMAR. SP IN TO REASSESS PT TODAY; PT TO CONTINUE WITH [facility] DIET ORDERED. PT NEEDING SOME ASSIST WITH MEALS D/T BEING SO MESSY. PT ABLE TO DRINK THIN LIQUIDS FINE, BUT NEEDS SUPERVISION D/T SPILLING. PT INCONTINENT OF BOWEL. LINENS CHANGED NEEDED THRU OUT THE DAY. NO C/O PAIN. HX OF ETOH AND METH ABUSE. SKIN TO BLE'S DRY AND WRINKLED WITH SCABS. BED ALARM ON FOR SAFETY. CALL LT IN REACH.
--- NOTE | 2021-02-18 19:25 | NUR ---
DRSG TO [facility]FA CHANGED BEFORE DINNER. WOUND CLEANED AND NEW DRSG APPLIED, PER ORDERS.
[2021-02-19 04:35] LABS: Hematocrit 33.7 % (37.0-53.0); Hemoglobin 10.6 g/dL (13.5-17.5)
[2021-02-19 05:17] LABS: Anion Gap 4 mmol/L (6-16); Blood Urea Nitrogen 34 mg/dL (8-24); Bun/Creatinine Ratio 31.8 (12.0-20.0); CO2, Blood 28 mmol/L (21-32); Chloride, Blood 110 mmol/L (98-108); Creatinine, Blood 1.07 mg/dL (0.60-1.20); Glomerular Filtration Rate >60 (60-); Glucose, Blood 100 mg/dL (70-99); Magnesium, Blood 1.7 mg/dL (1.6-2.4); Phosphorus, Blood 4.4 mg/dL (2.5-4.9); Potassium, Blood 4.7 mmol/L (3.5-5.5); Sodium, Blood 142 mmol/L (136-145)
--- NOTE | 2021-02-19 18:48 | NUR ---
PATIENT A/OX1-2, SLEPT MOST OF THIS SHIFT. ATIVAN AND CIWA'S D/C'D. PATIENT DID HAVE SOME SMALL AMOUNT OF PO INTAKE TODAY WITH ASSISTANCE. STRAIGHT CATH X2 THIS SHIFT DUE TO RETENTION. DRESSING TO R ARM REMAINS C/D/I. BLE DRY/FLAKY WITH SCABS, CREAM APPLIED. PATIENT ABLE TO REPOSITION SELF IN BED, TOO DROWSY AND CONFUSED TO GET UP SAFELY TODAY. FALL PRECAUTIONS IN PLACE, CALM AND COOPERATIVE WITH CARE.
--- NOTE | 2021-02-20 05:26 | NUR ---
PT more alert trying to climb out of bed repeatedly. Medicated x 1 with librium 25 mg pt scratching at skin picking at rt arm cellulitis site. Unable to void bladder scan for 377 st cath for 600 ml cloudy urine with sediment. Baseline PT takes flomax. Needs assist supervision for all oral intake. Fall & aspiration precautions.
--- NOTE | 2021-02-20 17:15 | NUR ---
PATIENT MORE ALERT THIS SHIFT. DIET CHANGED TO SOFT BITE SIZE AND PATIENT DOING WELL WITH MEALS WITH SUPERVISION. VSS, ON RA. PATIENT WAS FOUND DOWN THIS AFTERNOON BY DR. GAVIRIA, BUT DENIES ANY PAIN OR INJURY. WORKED WITH PT AND DID GET UP TO CHAIR FOR A SHORT TIME. A/O TO SELF AND PLACE, ABLE TO FOLLOW SIMPLE COMMANDS. STRAIGHT CATH X1 THIS AFTERNOON DUE TO RETENTION, PATIENT ON FLOMAX.
[2021-02-21 04:36] LABS: Hematocrit 31.1 % (37.0-53.0); Hemoglobin 9.7 g/dL (13.5-17.5); Mean Corpuscular HGB 27.5 pg (26.0-34.0); Mean Corpuscular HGB Conc 31.2 g/dL (31.5-36.5); Mean Corpuscular Volume 88 fL (80-100); Mean Platelet Volume 10.1 fL (9.1-12.4); Platelet Count 295 K/mm3 (150-400); RDW Coefficient Variation 14.7 % (11.7-14.2); RDW Standard Deviation 47.3 fL (35.1-46.3); Red Blood Cell Count 3.53 M/mm3 (4.30-5.90); White Blood Cell Count 6.47 K/mm3 (4.00-11.30)
--- NOTE | 2021-02-21 05:00 | NUR ---
SHIFT SUMMARY PT AA&O X2-3 WITH INTERMITTENT CONFUSION. PT HAD BLADDER SCAN RECORDING OF 797 AND 636 DURING THIS SHIFT. PATIENT WAS STRAIGHT CATHETERIZED X2. TOTAL OF 1400ML PALE YELLOW URINE OUTPUT.PT C/O ITCHING. ITCHING CREAM ADMINISTERED WITH GOOD EFFECTS. ADLS PROVIDE, SAFETY MEASURES IN PLACE. WILL CONTINUE TO MONITOR.
[2021-02-21 05:05] LABS: Albumin, Blood 1.1 g/dL (3.4-5.0); Anion Gap 3 mmol/L (6-16); Blood Urea Nitrogen 29 mg/dL (8-24); Bun/Creatinine Ratio 30.2 (12.0-20.0); CO2, Blood 28 mmol/L (21-32); Calcium, Blood 8.1 mg/dL (8.5-10.1); Chloride, Blood 108 mmol/L (98-108); Creatinine, Blood 0.96 mg/dL (0.60-1.20); Glomerular Filtration Rate >60 (60-); Glucose, Blood 97 mg/dL (70-99); Magnesium, Blood 1.6 mg/dL (1.6-2.4); Phosphorus, Blood 3.9 mg/dL (2.5-4.9); Sodium, Blood 139 mmol/L (136-145); Triglycerides 138 mg/dL (30-160)
--- NOTE | 2021-02-21 17:07 | NUR ---
PATIENT IS ALERT AND ORIENTED WITH INTERMITTENT CONFUSION. BLADDER SCAN AND STRAIGHT CATHETER PRN. PATIENT SHOWERED TODAY. HE IS IMPULSIVE AT TIMES. BED ALARM AND CHAIR ALARM ARE IN PLACE. TOLERATED SOFT DIET FOR LUNCH. RFA DRESSING CHANGED THIS AFTERNOON. UP TO BSC WITH 1PA AND FWW. WILL CONTINUE TO MONITOR
--- NOTE | 2021-02-22 04:41 | NUR ---
SHIFT SUMMARY PT AA&O X2 WITH INTERMITTENT CONFUSION. PT HAD BLADDER SCAN OF 675ML. PT WAS STRAIGHT CATH, WITH 663ML URINE OUTPUT. SCHEDULED MEDS ADMINISTERED PER EMAR. ADLS PROVIDE, SAFETY MEASURES IN PLACE. WILL CONTINUE TO MONITOR.
[2021-02-22 05:43] LABS: Hematocrit 29.8 % (37.0-53.0); Hemoglobin 9.3 g/dL (13.5-17.5)
[2021-02-22 06:09] LABS: Anion Gap 6 mmol/L (6-16); Blood Urea Nitrogen 21 mg/dL (8-24); Bun/Creatinine Ratio 21.5 (12.0-20.0); CO2, Blood 26 mmol/L (21-32); Chloride, Blood 106 mmol/L (98-108); Creatinine, Blood 0.98 mg/dL (0.60-1.20); Glomerular Filtration Rate >60 (60-); Glucose, Blood 112 mg/dL (70-99); Magnesium, Blood 1.5 mg/dL (1.6-2.4); Phosphorus, Blood 3.5 mg/dL (2.5-4.9); Potassium, Blood 4.2 mmol/L (3.5-5.5); Sodium, Blood 138 mmol/L (136-145)
--- NOTE | 2021-02-22 14:35 | NUR ---
SHIFT SUMMMARY PT AWAKE THIS AM, TALKING TO STAFF. PT BECOMING A LITTLE MORE ORIENTED IN THE LAST COUPLE OF DAYS. PER SHIFT REPORT, PT HAVING SOME URINE RETENTION, REQUIRING PRN STRAIGHT CATH. PT HAS VOIDED SEVERAL TIMES TODAY. UP TO BTHRM WITH ASSIST BY P/T AFTER LUNCH. INCONTINENT OF URINE X1, WHILE TAKING A NAP AFTER BREAKFAST. PT UP TO SHOWER THIS AM WELL. SITTING UP TO EOB NOW FOR MEALS. PT ABLE TO FEED HIMSELF AND DRINK W/O SPILLING IT ALL OVER. DR GAVIRIA IN TO SEE PT. NO NEW ORDERS AT THIS TIME. PT WAITING FOR D/C; REPORTS THAT HE GOES TO [facility] [place]. NO C/O. CALL LT IN REACH. BED ALARM ON FOR SAFETY.
--- NOTE | 2021-02-23 04:51 | NUR ---
SHIFT SUMMARY PT AA&OX2-3 WITH INTERMITTENT CONFUSION. PT WAS CONSTANTLY TRYING TO GET OUT OF BED THIS SHIFT. NOT EASY TO REDIRECT.BED ALARM IN PLACE. PT WAS ITCHING ON ARMS AND LEGS. HE INSISTED ON A SHOWER. HYDROELECTRIC STATION CHIEF ASSISTED HIM IN AND OUT OF SHOWER AND RUBBED LOTION ALL OVER HIS BODY, THIS HELPED FOR A WHILE. PT HAD FREQUENT URINE OUTPUT IN THE COMMODE AND WAS INCONTINENT AT TIMES. ADLS PROVIDE, SAFETY MEASURES IN PLACE. WILL CONTINUE TO MONITOR.
[2021-02-23 05:09] LABS: Hematocrit 31.7 % (37.0-53.0)
[2021-02-23 05:40] LABS: Albumin, Blood 1.2 g/dL (3.4-5.0); Anion Gap 3 mmol/L (6-16); Blood Urea Nitrogen 21 mg/dL (8-24); Bun/Creatinine Ratio 21.5 (12.0-20.0); CO2, Blood 29 mmol/L (21-32); Chloride, Blood 107 mmol/L (98-108); Creatinine, Blood 0.98 mg/dL (0.60-1.20); Glomerular Filtration Rate >60 (60-); Glucose, Blood 119 mg/dL (70-99); Magnesium, Blood 1.4 mg/dL (1.6-2.4); Phosphorus, Blood 3.7 mg/dL (2.5-4.9); Potassium, Blood 4.2 mmol/L (3.5-5.5); Sodium, Blood 139 mmol/L (136-145)
--- NOTE | 2021-02-23 17:33 | NUR ---
SHIFT SUMMARY PT VERY AGITATED AT START OF SHIFT AND PER REPORT, PT VERY UNCO-OP DURING THE NIGHT WELL. PT OOB CONSTANTLY SETTING OFF BED ALARM TRYING TO AMBULATE AROUND RM, BUT VERY UNSTEADY. PT IS HIGH FALL RISK. PT BECOMING AGITATED AND COMBATIVE. DR GAVIRIA NOTIFIED FOR VEST RESTRAINT. PT CONTINENT AND INCONTINENT OF URINE THRU OUT THE DAY. UP TO BSC AND TO BTHRM TO VOID AND LATER BM. BLADDER SCAN FOR PVR = 17cc. PT PARTLY AGITATED AND C/O ITCHING. DR GAVIRIA NOTIFIED AGAIN FOR BENEDRYL AND CORTISONE CREAM. PT REPORTED IMPROVEMENT AFTER ADMINISTRATION. PT RESTING QUIETLY AT TIME. CALL LT IN REACH. BED ALARM ON FOR SAFETY.
--- NOTE | 2021-02-23 19:49 | NUR ---
PT CONTINUES TO GET OOB WHEN AWAKE. UNCO-OP AND STUBBORN; WILL NOT USE HIS CALL LT AND WILL NOT ALLOW ANY ASSIST. [employer] NOTIFIED TODAY TO ASSIST WITH GETTING PT BACK TO BED SAFELY.
--- NOTE | 2021-02-24 05:19 | NUR ---
SHIFT SUMMARY PT ALERT AND ORIENTED WITH GOOD MCFP MEMORY. RESTLESS. VOICED A LOT OF INSANITY THROUHOUT STAFF. REALLY ANGRRY PATIENT.
[2021-02-24 05:42] LABS: Hematocrit 31.7 % (37.0-53.0)
[2021-02-24 06:36] LABS: Albumin, Blood 1.2 g/dL (3.4-5.0); Anion Gap 4 mmol/L (6-16); Blood Urea Nitrogen 16 mg/dL (8-24); Bun/Creatinine Ratio 17.5 (12.0-20.0); CO2, Blood 28 mmol/L (21-32); Chloride, Blood 107 mmol/L (98-108); Creatinine, Blood 0.91 mg/dL (0.60-1.20); Glomerular Filtration Rate >60 (60-); Glucose, Blood 88 mg/dL (70-99); Magnesium, Blood 1.4 mg/dL (1.6-2.4); Phosphorus, Blood 3.4 mg/dL (2.5-4.9); Potassium, Blood 4.4 mmol/L (3.5-5.5); Sodium, Blood 139 mmol/L (136-145)
--- NOTE | 2021-02-24 16:52 | NUR ---
SHIFT SUMMARY PT IS AO. PT DENIES PAIN, N/V, SOB. PT WISHES TO GO HOME TODAY. RIGHT FOREARM HAD US TODAY TO R/U ABSCESS-RESULTS PENDING. PT CALM FOR MAJORITY OF SHIFT WITH INTERMITTENT AGITATION ABOUT WANTING TO LEAVE HOME. PT APPETITE IS GOOD. PT IS UP SBA IN ROOM. PT VSS. PT IS IN BED, CALL LIGHT IN REACH, ALARM ON.
--- NOTE | 2021-02-25 00:22 | NUR ---
PT ALERT AND ORIENTED TO PERSON WITH CONFUSION.IN THE BEGINNING OF SHIFT, MEDS GIVEN. NEW IV PUT IN FOR IV ABT. DURING SHIFT PATIENT VOICED PROFANITY. BECOME REALLY BELIGERENT. CHARGE NURSE MADE AWARE. REQUEST OTHER STAFF MEMBER TO TAKE CARE OF HIM. REPORT GIVEN TO THE NURSE. KEEP MONITORING
--- NOTE | 2021-02-25 00:24 | NUR ---
ASSUMED CARE OF THE PATIENT, DUE TO HIM BEING RACIAL TOWARDS THE OTHER STAFF. INTRODUCTED SELF HE AGREES THIS WILL BE FINE. IV SL. GAVE SNACK PER REQUEST. ENCOURAGED HIM TO USE CALL LIGHT TO GET AHOLD OF ME. DENIES ANY OTHER NEEDS AT THIS TIME. WILL CONTINUE TO MONITOR.
[2021-02-25 05:13] LABS: BASOPHILS ABSOLUTE AUTO 0.03 K/mm3 (0.00-0.23); BASOPHILS PERCENT AUTO 0 % (0-2); EOSINOPHILS ABSOLUTE AUTO 0.26 K/mm3 (0.00-0.68); EOSINOPHILS PERCENT AUTO 4 % (0-6); Hemoglobin 9.1 g/dL (13.5-17.5); IMMATURE GRAN ABSOLUTE AUTO 0.17 K/mm3 (0.00-0.10); IMMATURE GRAN PERCENT AUTO 3 % (0-1); LYMPHOCYTES ABSOLUTE AUTO 1.89 K/mm3 (0.84-5.20); LYMPHOCYTES PERCENT AUTO 28 % (21-46); MONOCYTES ABSOLUTE AUTO 0.59 K/mm3 (0.16-1.47); MONOCYTES PERCENT AUTO 9 % (4-13); Mean Corpuscular HGB 27.6 pg (26.0-34.0); Mean Corpuscular HGB Conc 31.4 g/dL (31.5-36.5); Mean Corpuscular Volume 88 fL (80-100); Mean Platelet Volume 9.5 fL (9.1-12.4); NEUTROPHILS ABSOLUTE AUTO 3.93 K/mm3 (1.96-9.15); NEUTROPHILS PERCENT AUTO 57 % (41-73); Platelet Count 291 K/mm3 (150-400); RDW Coefficient Variation 14.6 % (11.7-14.2); RDW Standard Deviation 47.4 fL (35.1-46.3); White Blood Cell Count 6.87 K/mm3 (4.00-11.30)
--- NOTE | 2021-02-25 05:13 | NUR ---
SHIFT SUMMARY: I ASSUMED CARE OF BRIGITTE AFTER HE BECAME BALLIGERENT, RUDE, UN-COOPERATIVE AND RACISIT WITH ASSIGNED RN AND ALUMINUM BOATS ASSEMBLER. SINCE THEN HE HAS BEEN COOPEARTIVE AND PLEASANT. VERY MUNCHY ALL THE TIME, HAD TO CUT HIM OFF SOME OF THE SNACKING. CONSTANTLY ASKING IF HE CAN GO HOME. ANXIOUS AT TIMES BUT WAS EASILY CALMED DOWN. NO PAIN TO NOTE. VS SHOWED MILD TEMP OF 99, REST OF VS WNL. CALL LIGHT WITH IN REACH. WILL CONTINUE TO MONITOR.
--- NOTE | 2021-02-25 17:16 | NUR ---
SHIFT SUMMARY PATIENT MEDICATED X1 FOR ITCHING, X1 FOR AGITATION, DENIES PAIN EXCEPT WHEN FOREARM TOUCHED. ROOM AIR, UP SBA W/FWW TO BR. IMPUSIVE. CAN BE IRRITABLE WITH CARE. REDIRECTABLE. EATING AND DRINKING WELL.
--- NOTE | 2021-02-26 04:15 | NUR ---
SHIFT SUMMARY ADMITTED FOR SEPSIS/RENAL FAILURE. FULL CODE. 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 PLAN IS FOR PLACEMENT. PT IS IMPULSIVE. HE HAS DEMENTIA. HE HAS AN ABSCESS IN RT FOREARM. DR. PRESCOTT IS SURGICAL CONSULT. DR. WOOD IS RENAL CONSULT. IV VANCO IS SCHEDULED. HX: POLYSUBSTANCE ABUSE. HE STATED THAT HIS SKIN WAS SEVERELY ITCHY THROUGHOUT SHIFT. BENEDRYL GIVEN, OINTMENTS APPLIED TO SKIN.
[2021-02-26 04:40] LABS: Hematocrit 31.8 % (37.0-53.0); Mean Corpuscular HGB 27.5 pg (26.0-34.0); Mean Corpuscular HGB Conc 31.4 g/dL (31.5-36.5); Mean Corpuscular Volume 88 fL (80-100); Mean Platelet Volume 9.3 fL (9.1-12.4); Platelet Count 283 K/mm3 (150-400); RDW Coefficient Variation 14.8 % (11.7-14.2); RDW Standard Deviation 47.4 fL (35.1-46.3); Red Blood Cell Count 3.63 M/mm3 (4.30-5.90); White Blood Cell Count 5.97 K/mm3 (4.00-11.30)
[2021-02-26 05:45] LABS: Albumin, Blood 1.2 g/dL (3.4-5.0); Anion Gap 7 mmol/L (6-16); Blood Urea Nitrogen 12 mg/dL (8-24); Bun/Creatinine Ratio 12.8 (12.0-20.0); CO2, Blood 25 mmol/L (21-32); Calcium, Blood 8.2 mg/dL (8.5-10.1); Chloride, Blood 106 mmol/L (98-108); Creatinine, Blood 0.93 mg/dL (0.60-1.20); Glomerular Filtration Rate >60 (60-); Glucose, Blood 126 mg/dL (70-99); Magnesium, Blood 1.3 mg/dL (1.6-2.4); Phosphorus, Blood 3.6 mg/dL (2.5-4.9); Potassium, Blood 4.2 mmol/L (3.5-5.5); Sodium, Blood 138 mmol/L (136-145)
[2021-02-26 18:27] LABS: Vancomycin, Trough 7.6 ug/mL (5.0-10.0)
--- NOTE | 2021-02-26 19:26 | NUR ---
SHIFT SUMMARY PATIENT MEDICATED X1 FOR AGITATION, X2 FOR ITCHING. DENIES PAIN, NAUSEA, AND SHORTNESS OF BREATH. UP SBA W/FWW. VERY IMPULSIVE. BED ALARM ON FOR SAFETY. CAN BE RESISTIVE TO CARE, YELLS AT TIMES. REDIRECTABLE. DR. COSME AND DR. VALLADARES CONSULTED ON PATIENT. EATING AND DRINKING WELL.
--- NOTE | 2021-02-27 05:33 | NUR ---
PHYSICIAN COMMUNICATION CONTACTED [employer] TEACHER PHYSICIAN TO NOTIFY HIM THAT THE PATIENT IS ANXIOUS AND AGITATED. DR SUTTON ORDERED 0.25 MG PO ATIVAN.
--- NOTE | 2021-02-27 06:00 | NUR ---
SHIFT SUMMARY PATIENT ALERT AND ORIENTED X3. WAS IMPULSIVE AND IRRITABLE AT TIMES. MEDICATED PER EMAR FOR ITCHING. NO COMPLAINTS OF PAIN OR SHORTNESS OF BREATH. BED IN LOWEST POSITION WITH WHEELS LOCKED AND ALARM ON. CALL LIGHT WITHIN REACH. REPORT GIVEN TO ONCOMING RN.
--- NOTE | 2021-02-27 08:05 | NUR ---
PT SITTING UP ON THE SIDE OF THE BED WITH BED ALARM ACITVATED, PT IS IMPULSIVE A/OX3, COOPERATIVE WITH CARE THIS AM, LUNGS ARE CLEAR T/O, RESP EVEN AND UNLABORED, NO COUGH NOTED, HRR, 1+ EDEMA NOTED TO B/L LE, PPP+2, CAP REFILL <3SEC, VS STABLE, AFEBRILE, PIV TO LH, SITE IS CLEAR AND PATENT, BTX4, ABD FLAT SOFT NONTENDER, VOIDS WITHOUT DIFF, SKIN C/W/D, MAEW, STAND BY ASSIST, JUAN ANTONIO, CALL LIGHT IN REACH.
[2021-02-27 08:27] LABS: Albumin, Blood 1.2 g/dL (3.4-5.0); Anion Gap 2 mmol/L (6-16); Blood Urea Nitrogen 10 mg/dL (8-24); Bun/Creatinine Ratio 10.9 (12.0-20.0); CO2, Blood 31 mmol/L (21-32); Calcium, Blood 8.5 mg/dL (8.5-10.1); Chloride, Blood 107 mmol/L (98-108); Creatinine, Blood 0.92 mg/dL (0.60-1.20); Glomerular Filtration Rate >60 (60-); Glucose, Blood 103 mg/dL (70-99); Magnesium, Blood 1.2 mg/dL (1.6-2.4); Phosphorus, Blood 3.5 mg/dL (2.5-4.9); Potassium, Blood 4.5 mmol/L (3.5-5.5); Sodium, Blood 140 mmol/L (136-145)
--- NOTE | 2021-02-27 09:15 | NUR ---
pt laying in bed awake, yelling at me at the door to remove his iv now, asked him to give me a minute to finish gowning up and get a dressing, he said I'll pull it out myself then, asked him not to touch it, he became beligerant and continued to remove tape, got it out intact and dressed, was checking in his medications he demands his phone get hooked up to a machine feeder raw stock, asked him to let me finish his medications, he made snide remarks about not being able to handle more than one thing, when gave him his medications he pulled his blankets over his head and woulnd't respond, asked charge machine operator to make sure he takes them. call light in reach, he is being discharged today.
[2021-02-27] MEDS ORDERED: ACET325 PO (10:11)
[2021-02-27] MEDS ORDERED: MULVITA PO (10:11)
[2021-02-27] MEDS ORDERED: OMEP20ER PO (10:12)
[2021-02-27] MEDS ORDERED: RISP.25 PO (10:12)
[2021-02-27] MEDS ORDERED: VISBIOME 112.51 EACH PO (10:12)
[2021-02-27] MEDS ORDERED: SULTRIDS PO (10:12)
--- NOTE | 2021-02-27 15:26 | NUR ---
PT HAS BEEN DISCHARGED TO HOME, HE IS DRESSED, WENT OVER INSTRUCTIONS WITH HIM, HE VERBALIZED UNDERSTANDING, IV WAS REMOVED THIS AM. LEFT VIA WHEELCHAIR WITH TRANSPORT WITH HIS BELONGINGS, AND DISCHARGE INSTRUCTIONS.
== END 2021-02-27 15:21 | disposition home or self-care (01) | DRG 871 ==
LOC: MEDS 16:11 → PCU 16:11 → MEDS 02-17 18:10
PROVIDERS: Family Medicine; Internal Medicine; Internal Medicine Nephrology; Pharmacist; Surgery; ADMIT Internal Medicine
PROC: 0H9DXZZ Drainage of Right Lower Arm Skin, External Approach (ICD-10-PCS; principal; 2021-02-12 09:40)
DX: A40.0 Sepsis due to streptococcus, group A (principal); K85.90 Acute pancreatitis without necrosis or infection, unspecified; G92.8 Other toxic encephalopathy; J15.212 Pneumonia due to Methicillin resistant Staphylococcus aureus; L02.413 Cutaneous abscess of right upper limb; N17.9 Acute kidney failure, unspecified; E87.0 Hyperosmolality and hypernatremia; F10.239 Alcohol dependence with withdrawal, unspecified; E87.2 Acidosis; L03.113 Cellulitis of right upper limb; Z20.822 Contact with and (suspected) exposure to COVID-19; R65.20 Severe sepsis without septic shock; E11.22 Type 2 diabetes mellitus with diabetic chronic kidney disease; F32.A Depression, unspecified; K21.9 Gastro-esophageal reflux disease without esophagitis; E87.6 Hypokalemia; E83.42 Hypomagnesemia; F15.10 Other stimulant abuse, uncomplicated; R33.9 Retention of urine, unspecified; F17.210 Nicotine dependence, cigarettes, uncomplicated; Z79.899 Other long term (current) drug therapy; N18.9 Chronic kidney disease, unspecified; E87.70 Fluid overload, unspecified; E87.5 Hyperkalemia; E83.39 Other disorders of phosphorus metabolism; D64.9 Anemia, unspecified; E88.09 Other disorders of plasma-protein metabolism, not elsewhere classified; Z59.01 Sheltered homelessness; N40.1 Benign prostatic hyperplasia with lower urinary tract symptoms; R33.8 Other retention of urine
CPT/HCPCS: 0241U; 31720; 36415; 70450; 71045; 73201; 76770; 76882; 80053; 80069; 80202; 81001; 81050; 82150; 82248; 82550; 82553; 82947; 83036; 83605; 83690; 83735; 84100; 84132; 84145; 84156; 84295; 84478; 84484; 84550; 85007; 85014; 85018; 85025; 85027; 85060; 85610; 85651; 85730; 86140; 87040; 87070; 87075; 87077; 87147; 87186; 87205; 92526; 92610; 93005; 93010; 93971; 94640; 94760; 94762; 97110; 97116; 97162; 97530; 97530-CQ; A9270; C1751; G0103; G0480; J0696; J1644; J1650; J1815; J1940; J2060; J2543; J2704; J2930; J3010; J3370; J3411; J3475; J3480; J7042; J7050; J7060; J7070; P9041; Q9967